=== PATIENT | male | born 1940 | race Caucasian/White ===

== ENCOUNTER 2021-05-12 16:48 | Inpatient (IN) | payer OTHER, BC ==
[~2021-05-12] VITALS: Ht 175.3 cm; Wt 56.2 kg
[~2021-05-12 16:48] MED LIST: GABAPENTIN600 M1 PO; LIPITOR 40 MG T40 M1 PO; LIPITOR40 MG PO; QUETIAPINE FUMA25 MG PO; SEROQUEL 25 MG25 M1 PO; SUPER THERAVIT1 EACH PO
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
[2021-05-12 19:40] VITALS: BP 145/79
--- NOTE | 2021-05-12 22:01 | NUR ---
ASSUMED CARE OF PATIENT AT 1900. PATIENT IS A NEW ADMIT, WEARING STREET CLOTHES INCLUDING BLUE JEANS, A WHITE GRAPHIC TSHIRT, RED/BLACK PLAID BUTTON UP SHIRT, BROWN LEATHER SHOES, A GOLD COLORED WATCH ON HIS RIGHT WRIST, A YELLOW COLORED RING ON HIS LEFT RING FINGER, AND A BLACK HAT. HE IS AMBULATORY WITH A STEADY GAIT. HE IS CONFUSED AND ASKS FOR HIS CELL PHONE, BILLFOLD, AND REPEATEDLY, WELL ASKING TO LEAVE. PATIENT WATCHES THE EXIT DOORS. HAS A HISTORY OF ELOPING FROM MOST RECENT PLACEMENT, WHICH IS WHY HE IS HERE PER . UNABLE TO CARE FOR HIM AT HOME DUE TO HER OWN SERIOUS ILLNESS. HE IS VERY PLEASANT ASIDE FROM THE REPEATING REQUESTS WITHIN SHORT PERIODS OF TIME. PATIENT C/O OF NOT HAVING HIS OWN CLOTHES TO CHANGE INTO FOR BED, BUT IS REFUSING OFFERS OF [facility]. DID TAKE HIS HS MEDICATIONS WHOLE WITHOUT DIFFICULTY. WILL CONTINUE TO MONITOR.
[2021-05-13 06:08] LABS: CHOLESTEROL 133 mg/dL (<200); HDL CHOLESTEROL 62 mg/dL (>40); LDL CHOLESTEROL 58 mg/dL (<100); SERUM ASSESSMENT Clear; TC:HDL 2.1 Ratio (Not establshd); TRIGLYCERIDE 65 mg/dL (<150); VLDL 13 mg/dL (<40)
[2021-05-13 09:35] LABS: ANION GAP 11 mmol/L (7-16); BUN 14 mg/dL (7-18); CALCIUM 9.4 mg/dL (8.5-10.1); CHLORIDE 100 mmol/L (98-107); CO2 27 mmol/L (21-32); CREATININE 1.1 mg/dL (0.7-1.3); GLUCOSE 94 mg/dL (74-106); POTASSIUM 3.9 mmol/L (3.5-5.1); SODIUM 138 mmol/L (136-145)
[2021-05-13 09:54] LABS: ABSOLUTE NEUTROPHILS 4.7 thou/uL (1.4-8.2); BASOPHILS 0.5 % (0.0-2.0); EOSINOPHILS 2.2 % (0.0-3.0); HEMATOCRIT 39.8 % (42.0-52.0); HEMOGLOBIN 13.6 gm/dL (14.0-18.0); LYMPHOCYTES 8.9 % (24.0-44.0); MCHC 34.1 g/dL (28.0-37.0); MONOCYTES 10.7 % (1.0-8.0); PLATELET COUNT 258 thou/uL (150-400); POLYS 77.7 % (36.0-66.0); RBC 4.37 mil/uL (4.50-6.00); WBC 6.1 thou/uL (4.0-11.0)
[2021-05-13 10:09] VITALS: BP 123/64
[2021-05-13 12:00] LABS: FOLIC ACID 11.4 ng/mL (8.6-58.9)
--- NOTE | 2021-05-13 14:42 | NUR ---
Assumed pt care at 0700. pt was in the day room. alert and oriented to self. Asssessments completed, vss. active bowel sound, flat stomach. took meds whole, no difficulty noted. calm and co-operative with care and assessments. Denies si/hi, at this time there no c/o pain. Pt ambulates with a steady gait. PT is a high fall risk, pt refused to put on yellow shirt. PT REPORTED OF FEELING DIZZY WHEN HE STANDS UP. Orthostatic blood pressure was oredered. sTANDING BP: 69/45, O2 98%, P 88. Sitting BP: 108/67, 02 97%, P 84. Lying BP: 101/50, O2 96%, P 79. Dr Hamilton and DR Reed notified. pt is forgetful he ask same questions constantly, pt is redirectable. Lawrence MCKEON ordered and applied to pt. Pt sister ángel visited pt, during AM visiting hours. AT THIS TIME PT IS IN GROUPS. WILL CONTINUE TO MONITOR PT.
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
[2021-05-13 19:16] VITALS: BP 149/82
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
[2021-05-14 00:06] LABS: GLYCOHEMOGLOBIN (HGB A1C) 5.4 % (4.8-5.6)
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
[2021-05-14 10:16] VITALS: BP 139/83
--- NOTE | 2021-05-14 13:12 | NUR ---
PATIENT HAS BEEN UP, AND OUT ON THE UNIT, AMBULATES WITH SLOW STEADY GAIT. PATIENT TOOK ALL MEDICATION WHOLE WITHOUT DIFFICULTY, HE IS EATING MEALS, AND DRINKING FLUID WELL. PATIENT STILL HAD HIS WALLET FROM ADMISSION, REFUSING TO GIVE IT UP TO STAFF. SECURITY CALLED, AND THEY CAME UP, AND GOT THE WALLET, SAME IS LOCKED-UP IN SECURITY OFFICE. PATIENT DENIES SUICIDAL/HOMICIDAL IDEATION, HE DENIES DEPRESSION, AFFECT IS FLAT/BLUNTED, MOOD IS EUTHYMIC. ORTHO B/P WITH RESULT OF STANDING 60/34, PULSE 86. SITTING 130/69, PULSE 77. PATIENT DENIES DIZINESS, FLUID ENCOURAGED. NO SIGN ACUTE DISTRESS NOTED AT THIS TIME, WILL MONITOR FOR SAFETY.
[2021-05-14 17:40] VITALS: BP 130/69
[2021-05-14 17:42] VITALS: BP 60/34
[2021-05-14 19:13] VITALS: BP 138/73
--- NOTE | 2021-05-15 02:25 | NUR ---
PT CARE WAS RESUMED AT 1900 AFTER REPORT. HE IS ALERT AND ORIENTED. ABLE TO VERBALIZE NEEDS. LUNGS ARE CLEAR BS ACTIVE X4 QUADS. HE IS GETTING IV FLUIDS N/S 1000CC AT THE RATE OF 250ML. HE DENIES PAINS AND DISCOMFORT, SI/AVH/HI. IV LINE TO HIS ARM WAS INFILTRATED AND ONE OF THE EVENING NURSE RESTARTED ANOTHER ONE ON HIS LEFT ARM. HE IS CALM AND CO-OPERATIVE WITH CARE. NO BEHAVIOR NOTED AT THIS SHIFT. HE CONTINUED TO ASK FOR HIS BILFOLD WHICH IS CURRRENTLY WITH THE SECURITY. HE TOOK HIS MEDS WHOLE AND VITAL SIGN ARE STABLE. pT IS SLEEPING IN HIS ROOM NOW, BED LOW , LOCK, ALARMED, YELLOW SOCKS AND [id number] CHECK IS ONGOING. HE AMBULATES WITH ASSIST X1 TO BATHROOM. CONTINUE CARE AND MONITOR.
[2021-05-15 05:30] LABS: HEMATOCRIT 32.8 % (42.0-52.0); MCH 31.1 pg (26.0-34.0); MCHC 34.7 g/dL (28.0-37.0); MCV 89.4 fL (80.0-100.0); RBC 3.66 mil/uL (4.50-6.00); RDW 13.7 % (10.5-14.5); WBC 4.4 thou/uL (4.0-11.0)
[2021-05-15 05:40] LABS: HEMOGLOBIN 11.4 gm/dL (14.0-18.0)
[2021-05-15 06:13] LABS: CALCIUM 8.8 mg/dL (8.5-10.1); CREATININE 0.9 mg/dL (0.7-1.3); MAGNESIUM 2.1 mg/dL (1.8-2.4); POTASSIUM 3.8 mmol/L (3.5-5.1)
[2021-05-15 09:26] VITALS: BP 134/63
--- NOTE | 2021-05-15 11:30 | NUR ---
Assumed pt care at 0700. pt was in his room awake. Alert and oriented to person and place. ACTIVE BOWEL SOUNDS, Assessments completed, vss. PT TOOK MEDS WHOLE, NO DIFFICULTY NOTED. Pt denies si/hi, denies pain at this time. No sign of acute distress noted upon assessments. Ambulates with a steady gait. At this time pt is visiting with family. pt have his lia hose on. will continue to monitor.
[2021-05-15 19:02] VITALS: BP 110/61
[2021-05-15 20:30] VITALS: BP 110/61
--- NOTE | 2021-05-16 05:03 | NUR ---
pT CARE WAS RESUMED AT 1900. HE WAS SITTING WITH OTHER PATINETS IN THE DINING ROOM. HE DENIES PAINS/ SI/AVH/HI. HE TOOK HIS MEDS WHOLE AND VERBALISES NEEDS. CONTINET OF BOWEL AND BALDDER.RESQESTED TO SPEAK WITH HIS SPOUSE AND PHONE WAS GIVEN WITH STAFF ASSISTANCE TO NICK. PT TOOK THE PHONE TO HIS ROOM AND HID IT CLAIMING IT WAS LOST. NURSE RECOVER THE PHONE AND PT WAS VERY UPSET. HE STARTED PLANNING TO LEAVE SAYING, "NO ONE CARE HERE".THE NURSES REASSURED HIM. TO NO AVAIL. HE WENT TO BED ON THE ASSURANCE THE HE IS LEAVING IN THE AM WHEN GETS HERE. HE REQUESTED TO HAVE HIS BREAKFAST PRIOR TO LEAVING. BED IS LOW, LOCKED, ALARM ACTIVATED,PT WEARS HIS SHOES AND HE AMBULATES IN THE BIGGS WAY MOST OFTEN. [id number] CHECK IS ONGOING, CONTINUE CARE.
[2021-05-16 09:27] VITALS: BP 138/74
--- NOTE | 2021-05-16 12:53 | NUR ---
HAS BEEN AT NURSES STATION FREQUENTLY WITH VARIOUS CONCERNS AND REQUESTS-ASKING REPEATDLY ABOUT HIS BELONGINGS AND WANTING HIS TO MOVE INTO ROOM WITH HIM-WHEN GIVEN ANSWERS TO QUESTIONSWILL BECOME VERBALLY AGITATED AND ARGUMENTATIVEACCUSING NURSING STAFF OF LYING TO HIM AND TRYING TO "TRICK" HIM-DIFFICULT TO REDIRECT-ATTEMPTED DISTRACTION WITH ACTIVITIES HOWEVER WILL RETURN WITHIN 5-10 MINUTES REPEATING QUESTION ASKED PREVIOUSLY. GAIT IS STEADY WITHOUT ASSISTIVE DEVICES AND DENIES DIZZINESS UPON ARISING. BP 138/74. DENIES PAIN/DISCOMFORT. APPETITE IS POOR BUT WILL TAKE PO FLUIDS WITH PROMPTING/ENCOURAGEMENT.
--- NOTE | 2021-05-16 17:55 | NUR ---
[facility]
[2021-05-16 20:15] VITALS: BP 122/63
[2021-05-16 21:00] VITALS: BP 122/63
--- NOTE | 2021-05-17 03:35 | NUR ---
PATIENT CARE STARTED AT 1900. HE IS ALER AND ORIENTED. AMBULATES AND ABLE TO VERBALIZE NEED. MED WERE SWALLOWED WHOLE. LUNGS ARE CLEAR BS ACTIVE X4 QUAD. HE DENIES PAINS, SI/ AVH/HI. PT IS RESTING IN BED NO ISSUES NOTED.BED IS LOW, LOCKED AND YELLOW SOCKS ON.Q12 MINUTES CHECK CONTINUE CARE AND MONITOR.
[2021-05-17 09:05] VITALS: BP 149/65
--- NOTE | 2021-05-17 13:59 | NUR ---
DID HAVE SLIGHT IMPROVEMENT IN APPETITE TODAY-ATE 75 PERCENT OF BREAKFAST
[2021-05-17 19:37] VITALS: BP 152/74
--- NOTE | 2021-05-17 23:42 | NUR ---
PATIENT CARE ASSUMED AT 1900. PATIENT IN BIGGS IN FRONT OF NURSING STATION AT THAT TIME. PATIENT ASKING "CAN YOU TELL ME WHY I'M HERE AND IF MY KNOWS I'M HERE?", "WHEN CAN MY COME GET ME?", "CAN THE HEAT BE TURNED ON IN MY ROOM?". HE ASKS THESE QUESTIONS MULTIPLE TIMES AND DOESN'T SEEM TO RETAIN THE INFORMATION GIVEN FOR VERY LONG. PATIENT IS REDIRECTABLE AND PLEASANT OTHERWISE. HE TOOK MEDS WHOLE WITHOUT ANY DIFFICULTY. NO S/S OF DISTRESS OR DISCOMFORT. STATES HIS ONLY PAIN IS "IN MY ASS" AND UPON FURTHER QUESTIONING, THIS APPEARS TO BE SARCASM. AMBULATORY WITH STEADY GAIT. WILL CONTINUE TO MONITOR.
[2021-05-18 09:31] VITALS: BP 136/60
[2021-05-18 11:39] LABS: HEMATOCRIT 37.8 % (42.0-52.0); HEMOGLOBIN 12.8 gm/dL (14.0-18.0); MCH 30.4 pg (26.0-34.0); MCHC 33.9 g/dL (28.0-37.0); MCV 89.6 fL (80.0-100.0); RBC 4.21 mil/uL (4.50-6.00); RDW 13.6 % (10.5-14.5); WBC 4.9 thou/uL (4.0-11.0)
[2021-05-18 11:50] LABS: CALCIUM 9.2 mg/dL (8.5-10.1); CREATININE 1.1 mg/dL (0.7-1.3); POTASSIUM 4.1 mmol/L (3.5-5.1)
--- NOTE | 2021-05-18 12:59 | NUR ---
Assumed pt care at 0700. pt was in his room awake. pt was alert and oriented to person Assessments completed, vss. Active bowel sounds, no report of BM this shift. Pt took meds whole, no difficuly noted. DEnies si/hi. At this time there is no c/o pain. AMbulates with a steady gait. NO sign of acute distress noted at this time. Pt want to go home for fathers day. Pt daughter visited. At this time pt is in the room watching TV. Will continue to monitor.
[2021-05-18 19:15] VITALS: BP 127/51
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
[2021-05-19 10:03] VITALS: BP 129/61
--- NOTE | 2021-05-19 12:30 | NUR ---
RT Progress Note- Roland has been present in both the milieu and recreation therapy groups throughout his admission. Roland is active in group discussions with a heightened sense of humor throughout conversation. He agrees that this is his coping skill. During unstructured time, Roland socializes with a few peers he has made friends with on the unit. He has not displayed any aggression during interactions. ACCOUNT EXECUTIVE TRAINEE will continue to encourage this trend.
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
[2021-05-19 19:15] VITALS: BP 145/65
--- NOTE | 2021-05-20 00:50 | NUR ---
PATIENT CARE RESUMED AT 1900, NO S/S OR SYMPTOMS OF DISTRESS OR DISCOMFORT. DENIES PAIN/SI/HI/AVH. PATIENT NOW HAS A ROOMMATE ADMITTED TO OTHER BED IN ROOM AND PATIENT EXPRESSES "WHAT'S HE GOT? IS HE SICK?". PATIENT HAS OTHERWISE BEEN MUCH LESS REPETITIVE WITH CONCERNS ABOUT BILFOLD/PHONE AND ASKING IF HIS KNOWS HE IS HERE - COMPARED TO PREVIOUS NIGHTS. PATIENT APPEARS DISTRACTED FROM THESE THINGS BY HAVING A ROOMMATE. TOOK MEDS WHOLE WITHOUT DIFFICULTY. WILL CONTINUE TO MONITOR.
[2021-05-20 10:17] VITALS: BP 145/65
--- NOTE | 2021-05-20 13:23 | NUR ---
Assumed pt care at 0700. pt was in the day room . ALert and oriented to self. Assessments completed, vss. pt took meds whole, no difficulty noted. Denies si/hi. denies pain at this time. PT AMBULATES WITH A steady gait. 1000 pt c/o of dizziness when he stood up today. pt have history of orthostatic blood pressure. pt was helped to his room to rest. Reassessments pt felt better. No sign of acute distress noted upon assessments. AT this time pt is in groups. Will continue to monitor.
--- NOTE | 2021-05-20 17:45 | NUR ---
Pt participated in and in-person assessment with [facility]. Pt's , Prabha, and sister, Eileen, were also in person for the assessment. During the assessment the family did inform the Pt he would be going back to assisted living and not home. Pt expressed that he was unhappy about the decision but would go with the plan. Pt did tear up about the news, Pt's overall reaction was appropriate. SW did provide updated notes and medication list to Karen from [facility] after the assessment interview. Karen confirmed they are able to accept the Pt.
[2021-05-20 19:57] VITALS: BP 152/77
--- NOTE | 2021-05-21 05:31 | NUR ---
05-20-21 CARE TRANSFERRED 1899 OBSERVED PT WALKING IN HALLWAY WITH STEADY GAIT. LATER PT AAOX1, VSS, RR EVEN AND NONLABORED ON RA, PT DENIES PAIN AND SI/HI. ZERO S/S OF ACUTE DISTRESS, PT WILL CONTINUE TO BE MONITOR PER [facility].
[2021-05-21 09:22] VITALS: BP 105/78
[2021-05-21 12:51] VITALS: BP 105/78
--- NOTE | 2021-05-21 14:00 | NUR ---
1400 RESUMMED CARE FROM OVERNIGHT SHIFT THIS AM, PATIENT ALERT ORIENTED TIMES 2-3. PATIENT ATE BREAKFAST TOOK MEDICATION WITHOUT INCIDENCE, PATIENT DENIES SI/HI/AH/VH AT PRESENT. PATIENTS ABDOMEN SOFT BOWEL SOUNDS PRESENT PATIENTS LUNGS CLEAR. PATIENT PARTICIPATES IN GROUPS PATIENT HAS NOT DISPLAYED ANY BEHAVIORS, PATIENT IS SCHEDULED TO DISCHARGE TOMMOROW WILL CONTINUE TO MONITOR PATIENT FOR SAFETY AND BEHAVIORS.
--- NOTE | 2021-05-21 14:07 | NUR ---
MARTA spoke with Karen at [place] concerning discharge. MARTA informed the Pt was given a TB test however it would need to be read at [place]. Karen did agree to have test read by the nurse at [place]. Pt will d/c 03/22/2021 @ 1300. [facility] will transport the Pt. MARTA did fax the physician plan of care to [place] @ [phone]. MARTA spoke with the Pt's Prabha and informed her of this discharge.
[2021-05-21 19:29] VITALS: BP 123/61
--- NOTE | 2021-05-21 23:11 | NUR ---
05-21-21 CARE TRANSFERRED 1899 OBSERVED PT WALKING IN HALLWAY WITH STEADY GAIT. LATER PT AAOX1, VSS, RR EVEN AND NONLABORED ON RA. PT DENIES PAIN AND SI/HI. PT PRESENTS CALM AND COOPERATIVE THROUGHOUT NURSING ASSESSMENT.
[2021-05-22 11:34] VITALS: BP 136/74
[2021-05-22] MEDS ORDERED: DEPAKOTE 250MG250 M1 PO (12:40)
[2021-05-22] MEDS ORDERED: LEXAPRO 10 MG T10 M1 PO (12:41)
--- NOTE | 2021-05-22 12:59 | NUR ---
Alert and orientated to name only. Up ambulating without s/o distress. Denies SI/HI. Asked where he was going and told he was going to [place] and he stated, "So I guess that means I'm still not going home. She must be really mad at me. Breath sounds clear. Reg HR auscultated. Color pink with brisk capillary refill and palpable peripheral pulses. Independent with voiding. Active bowel sounds over soft, flat abdomen. Spoke with and DPOA, Prabha Moya, consents to transfer. Report called to [facility] and given to Patricia Zamora. Discharged at 1258 with staff per WC per [facility].
--- NOTE | 2021-05-24 23:32 | D ---
[facility] [place] [address] [place] [address] DISCHARGE SUMMARY Name: KIMMIE EARL Room #: 519B-B DIS IN M.R.#: [id number] Admission: 05/12/21 Attend Phys: Mika Hamilton DO Discharge: 05/22/21 Date of : 36 Report #: [id number] THIS REPORT FOR: cc: FAM - Family physician unknown FAM - Family physician unknown Mika Hamilton DO ~ DOC #: [id number] MIKA Hamilton DO DATE OF SERVICE: 05/22/2021 INPATIENT PSYCHIATRIC DISCHARGE SUMMARY ATTENDING PSYCHIATRIST: Mika Hamilton DO HOME CARE MUSIC THERAPIST: Nickolas Rogers M.D. 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 MEDICAL COMORBIDITIES: Includes orthostatic hypotension, TSH normal, cortisol normal, continue compression stockings. The patient continues to be agreeable. Anemia, likely anemia of chronic disease, chronic pain. The patient is discharging to [facility]. Psychiatric and medical care to be provided by receiving facility. LABORATORY DATA: Of significance this admission, most recent hematology: Hemoglobin and hematocrit 12.8 and 37.8, white count 4.9, platelet count 264. Chemistry on 05/18/2021, sodium 134, potassium 4.1, chloride 96, bicarbonate 28, anion gap 10, BUN 15, creatinine 1.1, estimated GFR 64, calcium 9.2, magnesium 2.1 on 05/15/2021. B12 of 956. TSH 2.176. Random cortisol 15.4. Toxicology on this admission, Depakote level on 05/20/2021 of 80 which is nicely therapeutic. Also, salicylate on 05/12/2021 negative. Acetaminophen negative. All illicit substances negative. Alcohol negative. DISCHARGE MEDICATIONS: This admission were include Depakote 375 mg oral twice daily for mood stabilization and Lexapro 5 mg oral daily for depression. ACTIVITY LEVEL: As tolerated. Normal gait and station, requires / supervision and assistance. DISCHARGE DIET: Regular diet. In addition, there is a supplement recommended of Ensure daily, BMI 18.3. REASON FOR ADMISSION: Back on 05/12/2021, an 80 year old male sent out from by [facility]. The patient had allegedly eloped and was banging on windows, not redirectable. [facility] [address] [place] [address] DISCHARGE SUMMARY Name: KIMMIE EARL Room #: 519B-B [facility] IN M.R.#: [id number] Admission: 05/12/21 Attend Phys: Mika Hamilton, Discharge: 05/22/21 Date of : 36 Report #: [id number] HOSPITAL COURSE: The patient was admitted to Geriatric Psychiatry Unit. We had several meetings with his , Juana, and daughters Ruth and Ioana. The patient responded well to Depakote initiation. There was a concern of him being placed about a month in [facility] and becoming increasingly depressed, add an SSRI for that. The family was not happy with the care plan and administration of the patient at [facility] and requested an alternative placement. Fortunately, we were able to achieve that for them. On the day of discharge, the patient was of good behavior and not suicidal or homicidal. VITAL SIGNS: Temperature 35.8, pulse 83, respirations 70, BP 136/74, and O2 sat 96%. MUSCULOSKELETAL: Normal gait and station, wearing glasses, [place] [employer] sweatshirt. MENTAL STATUS EXAMINATION: This is a well-developed, thin male appearing stated age. Attention limited. Concentration limited. Speech, slow and soft. Thought process: Linear and goal directed. Thought content focused on discharge. Denied SI, HI, or auditory, visual, or tactile hallucinations. Mood and affect was okay, good congruent, euthymic. Memory not formally tested, known to be impaired. Insight limited. Judgment: Fair to limited. Fund of knowledge below average. PROGNOSIS: Guarded given age of 80 given a neurodegenerative disorder. DO CARLITOS Lopez/SHAQ/FRANKY <ELECTRONICALLY SIGNED> By: Mika Hmailton DO 05/24/212331 26 23 Mika Hamilton DO /nt
== END 2021-05-22 12:58 | DRG 57 ==
LOC: SBH 16:48
PROVIDERS: Internal Medicine; Nurse Practitioner; ADMIT Psychiatry & Neurology Psychiatry; ATTEND Psychiatry & Neurology Psychiatry
DX: G30.9 Alzheimer's disease, unspecified (principal); F02.81 Dementia in other diseases classified elsewhere, unspecified severity, with behavioral disturbance; F01.51 Vascular dementia, unspecified severity, with behavioral disturbance; F29 Unspecified psychosis not due to a substance or known physiological condition; I95.1 Orthostatic hypotension; D63.8 Anemia in other chronic diseases classified elsewhere; E78.5 Hyperlipidemia, unspecified; G62.9 Polyneuropathy, unspecified; I10 Essential (primary) hypertension; G89.4 Chronic pain syndrome; F41.9 Anxiety disorder, unspecified; F32.9 Major depressive disorder, single episode, unspecified; Z87.891 Personal history of nicotine dependence; Z88.8 Allergy status to other drugs, medicaments and biological substances
CPT/HCPCS: 10880